=== PATIENT | male | born 1995 | race Two or more races ===

== ENCOUNTER 2019-07-08 13:18 | Emergency (ER) | payer BC ==
[2019-07-08] MEDS ORDERED: IV NS 0.9% 1,000 ML BAG IV ONE (14:30)
== END 2019-07-08 15:59 | disposition home or self-care (01) ==
DX: N50.89 Other specified disorders of the male genital organs (principal); R10.31 Right lower quadrant pain; Z98.890 Other specified postprocedural states
CPT/HCPCS: 36415; 76870; 80048; 80076; 81001; 83690; 85025; 87086; 99284; J7030